=== PATIENT | female | born 1935 | race Caucasian/White ===

== ENCOUNTER 2020-11-12 10:59 | Inpatient (IN) | payer MEDICARE, OTHER ==
[~2020-11-12] VITALS: Ht 172.7 cm; Wt 72.7 kg
[2020-11-12 11:47] LABS: CLARITY,URINE CLOUDY (Clear); COLOR,URINE YELLOW (Yellow); GLUCOSE, URINE NEGATIVE (Neg); KETONES,URINE TRACE mg/dl (Neg); LEUKOCYTE ESTERASE ,URINE MODERATE (Neg); NITRITES, URINE NEGATIVE (Neg); OCCULT BLOOD,URINE LARGE (Neg); PROTEIN,URINE 100 mg/dl (Neg)
[2020-11-12 11:51] LABS: UA COLLECTION TYPE FOLEY CATH
[2020-11-12 11:52] LABS: BACTERIA,URINE 4+ /HPF (Neg); MUCUS STRANDS FEW /LPF (Neg); RBC,URINE 0-2 /HPF (0-2); SQUAMOUS EPITHELIAL CELL,UR FEW /LPF (FEW); WBC,URINE 50-100 /HPF (0-4)
--- NOTE | 2020-11-12 12:01 | NUR ---
spoke with live in grandson Ajit Alvarado [phone]
[2020-11-12] MEDS ORDERED: NO HOME MEDS (12:03)
--- NOTE | 2020-11-12 12:03 | NUR ---
monique jared stated she has not had covid vaccine, nkda, no home medications, [facility].
[2020-11-12 12:45] LABS: BASOPHILS % (AUTO) 0.2 % (0-1); EOSINOPHILS % (AUTO) 0 % (0-6); HEMATOCRIT 39.2 % (35.0-45.0); HEMOGLOBIN 13.1 g/dl (12.0-16.0); LYMPHOCYTES % (AUTO) 8.7 % (21-51); MEAN CORPUSCULAR HEMOGLOBIN 29.4 PG (27.0-31.0); MEAN CORPUSCULAR HGB CONC 33.5 g/dL (33.0-36.5); MEAN CORPUSCULAR VOLUME 87.7 FL (78-98); MEAN PLATELET VOLUME 7.2 FL (7.4-10.4); MONOCYTES # (AUTO) 1.4 X10'3 (0-0.9); MONOCYTES % (AUTO) 11.7 % (2-12); NEUTROPHILS # (AUTO) 9.5 X10'3 (1.8-7.7); NEUTROPHILS % (AUTO) 79.4 % (42-75); PLATELET COUNT 197 X10'3 (140-440); RED BLOOD COUNT 4.47 X10'6 (4.20-5.60); RED CELL DISTRIBUTION WIDTH 13.7 % (11.5-14.5); WHITE BLOOD COUNT 11.9 X10'3 (4.5-11.0)
[2020-11-12] MEDS ORDERED: dexamethasone sod phosphate 10mg/ml inj IV STA (12:49)
[2020-11-12 13:01] LABS: ALANINE AMINOTRANSFERASE 401 U/L (12-78); ALBUMIN 2.9 G/DL (3.4-5.0); ALBUMIN/GLOBULIN RATIO 0.7 (1.1-1.5); ALKALINE PHOSPHATASE 109 IU/L (46-116); ANION GAP 14 (8-16); ASPARTATE AMINO TRANSFERASE 605 U/L (10-37); BILIRUBIN,TOTAL 0.6 MG/DL (0.1-1.0); BLOOD UREA NITROGEN 30 MG/DL (7-18); BUN/CREATININE RATIO 32.3 (6.6-38.0); CALCIUM 8.8 MG/DL (8.5-10.1); CHLORIDE 103 MMOL/L (99-107); CREATININE 0.93 MG/DL (0.40-0.90); GLUCOSE 148 MG/DL (70-104); SODIUM 140 MMOL/L (135-145); TOTAL CARBON DIOXIDE 22.9 MMOL/L (24-32); TOTAL PROTEIN 7.1 G/DL (6.4-8.2); eGFR 57 ML/MIN
[2020-11-12 13:10] LABS: MAGNESIUM 2.6 MG/DL (1.5-2.4)
[2020-11-12] MEDS ORDERED: CefTRIAXone/D5W-Rocephin 1gm 50 ML IV ONE (13:10)
[2020-11-12 13:15] LABS: TROPONIN I 3.74 NG/ML (0.0-0.05)
[2020-11-12] MEDS ORDERED: aspirin 300mg supp.rect RC ONE (13:20)
[2020-11-12] MEDS ORDERED: iohexol 350MG/ML 100ml bottle IV ONE (13:26)
[2020-11-12 13:35] LABS: ETHANOL < 0.010 GM/DL (0.0-0.010)
[2020-11-12 13:48] LABS: URINE AMPHETAMINE SCREEN NEGATIVE (Neg); URINE BARBITUATE SCREEN NEGATIVE (Neg); URINE BENZODIAZEPINES SCREEN NEGATIVE (Neg); URINE CANNABINOID SCREEN NEGATIVE (Neg); URINE COCAINE SCREEN NEGATIVE (Neg); URINE METHADONE SCREEN NEGATIVE (Neg); URINE OPIATE SCREEN NEGATIVE (Neg); URINE PHENCYCLIDINE SCREEN NEGATIVE (Neg)
--- NOTE | 2020-11-12 13:56 | NUR ---
back from [place]
[2020-11-12] MEDS ORDERED: LEVO75TA PO (15:05)
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
[2020-11-12] MEDS ORDERED: normal saline 1000ml 1,000 ML IV ONE (15:10)
--- NOTE | 2020-11-12 15:10 | NUR ---
EYE PATCH PLACED OVER RIGHT EYE
[2020-11-12] MEDS ORDERED: PERFLUTREN PROTEIN-A MICROSPHR (Optison) 0.22 MG/ML 3ML VIAL IV ONE (15:55)
[2020-11-12] MEDS ORDERED: potassium Cl 20 mEq SR tablet PO PRN ×2 (15:55)
[2020-11-12] MEDS ORDERED: magnesium 4gm in 100ml NS 100 ML IV PRN (15:55)
[2020-11-12] MEDS ORDERED: morphine 2 MG/ML inj. syringe IV PRN (15:55)
[2020-11-12] MEDS ORDERED: acetaminophen 325mg tablet PO PRN (15:55)
[2020-11-12] MEDS ORDERED: potassium Cl 40MEQ/1/2NS 520ml 520 ML IV PRN ×2 (15:55)
[2020-11-12] MEDS ORDERED: heparin 10,000 units/1 ML INJ IV ONE (15:55)
[2020-11-12] MEDS ORDERED: magnesium hydroxide 30ml (MOM) UD suspension PO PRN (15:55)
[2020-11-12] MEDS ORDERED: mag hydrox/Alum hydrox/simeth 30ml oral suspension PO PRN (15:55)
[2020-11-12] MEDS ORDERED: heparin 10,000 units/1 ML INJ IV PRN (15:55)
[2020-11-12] MEDS ORDERED: magnesium 2GM in 50ml NS 50 ML IV PRN (15:55)
[2020-11-12] MEDS ORDERED: ondansetron/PF 4mg/2ml inj IV PRN (15:55)
[2020-11-12] MEDS ORDERED: ALBUTEROL INHALER 1 PUFF/90 MCG INHALER IH PRN (16:05)
[2020-11-12 16:16] LABS: D-DIMER 19.88 MG/L FEU (0-0.50)
[2020-11-12] MEDS ORDERED: furosemide 20 MG/2 ML vial IV ONE (16:20)
[2020-11-12 16:22] LABS: C-REACTIVE PROTEIN 17.29 MG/DL (0.0-0.5)
[2020-11-12] MEDS: normal saline 1000ml 1,000 ML IV SCH (16:37)
[2020-11-12] MEDS: heparin 25,000 UNIT/250ml bag 250 ML IV SCH (16:53)
[2020-11-12 17:02] LABS: BASOPHILS % (AUTO) 0.2 % (0-1); EOSINOPHILS % (AUTO) 0 % (0-6); HEMATOCRIT 36.2 % (35.0-45.0); HEMOGLOBIN 12.1 g/dl (12.0-16.0); LYMPHOCYTES # (AUTO) 0.7 X10'3 (1.1-4.8); MEAN CORPUSCULAR HEMOGLOBIN 29.6 PG (27.0-31.0); MEAN CORPUSCULAR HGB CONC 33.4 g/dL (33.0-36.5); MEAN CORPUSCULAR VOLUME 88.4 FL (78-98); MEAN PLATELET VOLUME 7.1 FL (7.4-10.4); MONOCYTES # (AUTO) 0.5 X10'3 (0-0.9); MONOCYTES % (AUTO) 3.3 % (2-12); NEUTROPHILS # (AUTO) 13.1 X10'3 (1.8-7.7); NEUTROPHILS % (AUTO) 91.5 % (42-75); PLATELET COUNT 162 X10'3 (140-440); RED CELL DISTRIBUTION WIDTH 13.8 % (11.5-14.5); WHITE BLOOD COUNT 14.4 X10'3 (4.5-11.0)
[2020-11-12 17:19] LABS: PARTIAL THROMBOPLASTIN TIME 31 SECONDS (22-32)
--- NOTE | 2020-11-12 19:06 | NUR ---
CHLOÉ VALVERDE CALLED, WOULD LIKE TO BE UPDATED [phone].
[2020-11-12] MEDS: methylPREDNISolone sod succ 125mg/2ml vial IV SCH (19:29)
[2020-11-12] MEDS: docusate sod 100mg capsule PO SCH (19:31)
[2020-11-12] MEDS: K and/or MAG REPLACEMENT MC SCH (19:31)
[2020-11-12] MEDS: morphine 2 MG/ML inj. syringe IV PRN (19:31)
[2020-11-12 23:48] LABS: PARTIAL THROMBOPLASTIN TIME 95 SECONDS (22-32)
--- NOTE | 2020-11-13 | NUR ---
Dr. Tineo made aware of PTT 95, following protocol instructions.
[2020-11-13] MEDS: morphine 2 MG/ML inj. syringe IV PRN ×2 (01:50→11:24)
[2020-11-13] MEDS: normal saline 1000ml 1,000 ML IV SCH ×3 (01:59→21:55)
--- NOTE | 2020-11-13 02:05 | NUR ---
700ml dark yellow urine emptied from [facility].
[2020-11-13 04:34] LABS: PARTIAL THROMBOPLASTIN TIME 39 SECONDS (22-32)
[2020-11-13 04:35] LABS: D-DIMER > 35.20 MG/L FEU (0-0.50)
[2020-11-13] MEDS: K and/or MAG REPLACEMENT MC SCH ×2 (08:00→20:00)
--- NOTE | 2020-11-13 09:00 | NUR ---
PT HAD PULLED OUT L HAND IV SL, DRSG APPLIED. L WRIST IV STILL INTACT AND INFUSING.
[2020-11-13] MEDS: docusate sod 100mg capsule PO SCH ×2 (10:30→20:00)
[2020-11-13] MEDS: methylPREDNISolone sod succ 125mg/2ml vial IV SCH ×2 (10:33→22:03)
[2020-11-13] MEDS: CefTRIAXone/D5W-Rocephin 1gm 50 ML IV SCH (10:33)
[2020-11-13] MEDS: levoTHYROXINE 75mcg tablet PO SCH (10:36)
[2020-11-13 11:06] LABS: BASOPHILS % (AUTO) 0.1 % (0-1); EOSINOPHILS % (AUTO) 0 % (0-6); HEMOGLOBIN 12.3 g/dl (12.0-16.0); LYMPHOCYTES # (AUTO) 0.7 X10'3 (1.1-4.8); LYMPHOCYTES % (AUTO) 4.7 % (21-51); MEAN CORPUSCULAR HEMOGLOBIN 29.4 PG (27.0-31.0); MEAN CORPUSCULAR HGB CONC 33.3 g/dL (33.0-36.5); MEAN CORPUSCULAR VOLUME 88.3 FL (78-98); MEAN PLATELET VOLUME 7.6 FL (7.4-10.4); MONOCYTES # (AUTO) 0.6 X10'3 (0-0.9); MONOCYTES % (AUTO) 3.6 % (2-12); NEUTROPHILS # (AUTO) 14.3 X10'3 (1.8-7.7); NEUTROPHILS % (AUTO) 91.6 % (42-75); PLATELET COUNT 202 X10'3 (140-440); RED BLOOD COUNT 4.19 X10'6 (4.20-5.60); RED CELL DISTRIBUTION WIDTH 14.1 % (11.5-14.5); WHITE BLOOD COUNT 15.6 X10'3 (4.5-11.0)
[2020-11-13 11:10] LABS: PARTIAL THROMBOPLASTIN TIME 63 SECONDS (22-32)
[2020-11-13 11:13] LABS: ALANINE AMINOTRANSFERASE 338 U/L (12-78); ALBUMIN 2.6 G/DL (3.4-5.0); ALBUMIN/GLOBULIN RATIO 0.7 (1.1-1.5); ALKALINE PHOSPHATASE 104 IU/L (46-116); ANION GAP 12 (8-16); ASPARTATE AMINO TRANSFERASE 327 U/L (10-37); BILIRUBIN,TOTAL 0.4 MG/DL (0.1-1.0); BLOOD UREA NITROGEN 28 MG/DL (7-18); BUN/CREATININE RATIO 35.4 (6.6-38.0); C-REACTIVE PROTEIN 8.93 MG/DL (0.0-0.5); CALCIUM 7.8 MG/DL (8.5-10.1); CHLORIDE 109 MMOL/L (99-107); CREATININE 0.79 MG/DL (0.40-0.90); GLUCOSE 148 MG/DL (70-104); MAGNESIUM 2.3 MG/DL (1.5-2.4); POTASSIUM 4.3 MMOL/L (3.5-5.1); SODIUM 145 MMOL/L (135-145); TOTAL CARBON DIOXIDE 23.7 MMOL/L (24-32); TOTAL PROTEIN 6.5 G/DL (6.4-8.2); eGFR 69 ML/MIN
--- NOTE | 2020-11-13 11:33 | NUR ---
PT FREQUENTLY REPOSITTIONED IN BED AND BI-PAP MASK ADJUSTED.
[2020-11-13 11:43] LABS: TOTAL CELLS COUNTED 100
[2020-11-13 11:44] LABS: ACANTHOCYTES FEW; BURR CELLS 1+; ELLIPTOCYTES FEW; PLATELET ESTIMATE NORMAL; POLYCHROMASIA FEW
--- NOTE | 2020-11-13 11:45 | NUR ---
GRANDDAUGHTER CALLED WOULD LIKE FOR YOU TO CALL HER BACK
--- NOTE | 2020-11-13 13:25 | NUR ---
Pt seen by hospitalist Dr. Bullard. Received VO for Ativan 0.5mg IV Q 4 hrs PRN anxiety/aggitaion as well to help pt tollerate bi-pap.
[2020-11-13 14:49] LABS: TROPONIN I 1.89 NG/ML (0.0-0.05)
--- NOTE | 2020-11-13 15:10 | NUR ---
Pt grand-daughter Nikhil updated on pt status.
[2020-11-13] MEDS: LORazepam 2 mg/ml vial IV PRN (15:34)
[2020-11-13] MEDS: heparin 25,000 UNIT/250ml bag 250 ML IV SCH (19:42)
[2020-11-13] MEDS: lactobacillus rhamnosus 10,000 MMU CELLS/CAPSULE PO SCH (20:00)
[2020-11-14 02:15] LABS: ALANINE AMINOTRANSFERASE 313 U/L (12-78); ALBUMIN 2.5 G/DL (3.4-5.0); ALBUMIN/GLOBULIN RATIO 0.7 (1.1-1.5); ALKALINE PHOSPHATASE 112 IU/L (46-116); ANION GAP 9 (8-16); ASPARTATE AMINO TRANSFERASE 212 U/L (10-37); BILIRUBIN,TOTAL 0.3 MG/DL (0.1-1.0); BLOOD UREA NITROGEN 25 MG/DL (7-18); BUN/CREATININE RATIO 33.3 (6.6-38.0); C-REACTIVE PROTEIN 6.17 MG/DL (0.0-0.5); CALCIUM 7.7 MG/DL (8.5-10.1); CHLORIDE 113 MMOL/L (99-107); CREATININE 0.75 MG/DL (0.40-0.90); GLUCOSE 161 MG/DL (70-104); MAGNESIUM 2.6 MG/DL (1.5-2.4); POTASSIUM 4.6 MMOL/L (3.5-5.1); SODIUM 146 MMOL/L (135-145); TOTAL CARBON DIOXIDE 24.2 MMOL/L (24-32); TOTAL PROTEIN 6.3 G/DL (6.4-8.2); eGFR 74 ML/MIN
[2020-11-14 02:21] LABS: D-DIMER 11.44 MG/L FEU (0-0.50); PARTIAL THROMBOPLASTIN TIME 51 SECONDS (22-32)
[2020-11-14] MEDS: LORazepam 2 mg/ml vial IV PRN ×2 (04:25→17:42)
[2020-11-14] MEDS: normal saline 1000ml 1,000 ML IV SCH ×2 (07:55→20:02)
[2020-11-14] MEDS: lactobacillus rhamnosus 10,000 MMU CELLS/CAPSULE PO SCH ×2 (08:00→20:00)
[2020-11-14] MEDS: K and/or MAG REPLACEMENT MC SCH ×2 (08:00→20:00)
[2020-11-14] MEDS: docusate sod 100mg capsule PO SCH ×2 (08:00→20:00)
[2020-11-14] MEDS: levoTHYROXINE 75mcg tablet PO SCH (08:00)
--- NOTE | 2020-11-14 08:29 | NUR ---
granddaughter arianne called [phone]
[2020-11-14 10:20] LABS: BASOPHILS % (AUTO) 0.1 % (0-1); EOSINOPHILS % (AUTO) 0 % (0-6); HEMATOCRIT 35.8 % (35.0-45.0); HEMOGLOBIN 11.9 g/dl (12.0-16.0); LYMPHOCYTES # (AUTO) 0.3 X10'3 (1.1-4.8); LYMPHOCYTES % (AUTO) 2.6 % (21-51); MEAN CORPUSCULAR HEMOGLOBIN 29.9 PG (27.0-31.0); MEAN CORPUSCULAR HGB CONC 33.3 g/dL (33.0-36.5); MEAN CORPUSCULAR VOLUME 89.8 FL (78-98); MEAN PLATELET VOLUME 7.7 FL (7.4-10.4); MONOCYTES # (AUTO) 0.3 X10'3 (0-0.9); MONOCYTES % (AUTO) 2.7 % (2-12); NEUTROPHILS # (AUTO) 9.5 X10'3 (1.8-7.7); NEUTROPHILS % (AUTO) 94.6 % (42-75); PLATELET COUNT 188 X10'3 (140-440); RED BLOOD COUNT 3.99 X10'6 (4.20-5.60); RED CELL DISTRIBUTION WIDTH 14.1 % (11.5-14.5)
--- NOTE | 2020-11-14 11:00 | NUR ---
SANDY VALVERDE [phone] DESIGNATED FAMILY MEMBER FOR DECISION MAKING PER [employer]
[2020-11-14 11:27] LABS: NUCLEATED RED BLOOD CELLS 2 /100WBC (0-0); TOTAL CELLS COUNTED 100
[2020-11-14 11:28] LABS: PLATELET ESTIMATE NORMAL; POLYCHROMASIA 1+
[2020-11-14 11:29] LABS: ACANTHOCYTES FEW; BURR CELLS 2+; ELLIPTOCYTES FEW
[2020-11-14 11:33] LABS: SCHISTOCYTES 1+
--- NOTE | 2020-11-14 11:41 | NUR ---
DR JOSEPH CALLED AND WILL BE CALLING DAUGHTER SANDY TO DISCUSS PTS STATUS.
--- NOTE | 2020-11-14 12:35 | NUR ---
pt found with bipap off. 02 sat 40s-50s. bipap applied at 90% and increased to 88-89%. rt called.
--- NOTE | 2020-11-14 12:37 | NUR ---
dr. cornejo called regarding code status, he spoke with hal granddaughter and family will discuss and call back.
[2020-11-14] MEDS: CefTRIAXone/D5W-Rocephin 1gm 50 ML IV SCH (12:46)
[2020-11-14] MEDS: methylPREDNISolone sod succ 125mg/2ml vial IV SCH ×2 (12:46→19:59)
[2020-11-14] MEDS: morphine 2 MG/ML inj. syringe IV PRN ×2 (17:42→19:30)
--- NOTE | 2020-11-14 17:43 | NUR ---
GRANDDAUGHTER SANDY IN ROOM, PT PLACED ON COMFORT CARE, BIPAP REMOVED PER FAMILY MEMBER'S WISH. PT COMFORTABLE AND RESTING IN BED WITH EYES CLOSED.
--- NOTE | 2020-11-14 19:10 | NUR ---
CALLED , NOTIFIED PT'S FAMILY HAS QUESTIONS, WHEN RN ARRIVED PT'S GRAND DAUGHTER WAS REPORTING SHE WAS UPSET AND FAMILY WAS QUESTIONING IF PT WAS PULLED OFF BIPAP TOO SOON. FAMILY REPORTS FEELING LIKE NOT ENOUGH WAS DONE FOR PT. RN ATTEMPTED TO ADVISE OF PT'S STATUS AND COMFORT GRANDDAUGHTER AT BEDSIDE. PT MOANING, BUT RR REMAINS ELEVATED, SAT'S 40% ON RA. DR. VYAS ADVISED HE WILL COME CONSULT ON PT.
[2020-11-14] MEDS ORDERED: morphine 10mg/0.5ml (conc. morphine) oral syringe PO PRN (21:05)
[2020-11-14] MEDS ORDERED: morphine 10mg/ml inj. IV PRN (21:05)
[2020-11-14] MEDS ORDERED: acetaminophen 325mg tablet PO PRN (21:05)
[2020-11-14] MEDS ORDERED: LORazepam 2 mg/ml vial IV PRN (21:05)
--- NOTE | 2020-11-14 21:38 | NUR ---
4 MG OF MORPHINE OVERRODE AND GIVEN PER MD ORDERS FOR COMFORT CARE AND CALL TO PHARMACY WITHOUT ABILITY TO VERIFY MEDS PER MD ORDERS. PT'S RR ELEVATED, MOANING.
[2020-11-14] MEDS ORDERED: morphine 4 MG/ML inj SYRINge IM ONE (21:40)
--- NOTE | 2020-11-14 22:18 | NUR ---
called pt's grand daughter Nikhil, notified pt's hr in the 30's, rr 4, saturation no longer reading, she will be passing soon.
--- NOTE | 2020-11-14 22:23 | NUR ---
Called notified pt's hr dropped from 33 to zero, asystole on the monitor, pupils fixed, dilated, negative l/s. time of [id number]
[2020-11-15] MEDS ORDERED: sennosides/docusate sodium tablet PO SCH (08:00)
== END 2020-11-15 01:09 | DRG 177 ==
LOC: ER 11:00 → ED HOLD 16:01 → MERGE 16:01 → EDBEDREQTM 11-14 01:50
PROVIDERS: ADMIT Family Medicine; ATTEND Family Medicine
PROC: 5A09457 Assistance with Respiratory Ventilation, 24-96 Consecutive Hours, Continuous Positive Airway Pressure (ICD-10-PCS; principal; 2020-11-12)
PROC: B32T1ZZ Computerized Tomography (CT Scan) of Left Pulmonary Artery using Low Osmolar Contrast (ICD-10-PCS; 2020-11-12)
PROC: B3201ZZ Computerized Tomography (CT Scan) of Thoracic Aorta using Low Osmolar Contrast (ICD-10-PCS; 2020-11-12)
PROC: B32S1ZZ Computerized Tomography (CT Scan) of Right Pulmonary Artery using Low Osmolar Contrast (ICD-10-PCS; 2020-11-12)
PROC: BW211ZZ Computerized Tomography (CT Scan) of Abdomen and Pelvis using Low Osmolar Contrast (ICD-10-PCS; 2020-11-12)
DX: U07.1 COVID-19 (principal); G93.41 Metabolic encephalopathy; I21.4 Non-ST elevation (NSTEMI) myocardial infarction; I50.31 Acute diastolic (congestive) heart failure; J12.82 Pneumonia due to coronavirus disease 2019; J15.9 Unspecified bacterial pneumonia; J96.01 Acute respiratory failure with hypoxia; K72.00 Acute and subacute hepatic failure without coma; N39.0 Urinary tract infection, site not specified; E03.9 Hypothyroidism, unspecified; R74.01 Elevation of levels of liver transaminase levels; Z51.5 Encounter for palliative care; Z66 Do not resuscitate
CPT/HCPCS: 36415; 70450; 71045; 71275; 74177; 80053; 80305; 80320; 80329; 81001; 83605; 83735; 83880; 84145; 84439; 84443; 84484; 85007; 85025; 85379; 85610; 85730; 86140; 87040; 87077; 87088; 87186; 87635; 93005; 93306; 94660; 94760; 94799; 96365; 96375; 99285; C9803; G0378; J0696; J1100; J1644; J1940; J2060; J2270; J2930; J7030; Q9967